=== PATIENT | male | born 1960 | race Caucasian/White ===

== ENCOUNTER 2024-05-18 20:29 | Emergency (ER) | payer BC, OTHER ==
[~2024-05-18] VITALS: Ht 172.7 cm; Wt 71.7 kg
[2024-05-18] MEDS ORDERED: TDAP [DIPH/PERTUSSIS/TET] 0.5 ML VIAL IM ONE (21:39)
[2024-05-18] MEDS: TDAP [DIPH/PERTUSSIS/TET] 0.5 ML VIAL IM ONE (21:45)
[2024-05-18] MEDS ORDERED: LIDOCAINE 0.5%-EPI 1:200,000 50 ML VIAL ONE (22:00)
[2024-05-18 22:39] VITALS: BP 121/71; TEMP 98.5; O2SAT 96
== END 2024-05-18 22:39 | disposition home or self-care (01) ==
LOC: ER 20:37
DX: S01.01XA Laceration without foreign body of scalp, initial encounter (principal); S09.90XA Unspecified injury of head, initial encounter; I10 Essential (primary) hypertension; Z79.02 Long term (current) use of antithrombotics/antiplatelets; Z79.82 Long term (current) use of aspirin; Z95.5 Presence of coronary angioplasty implant and graft; W19.XXXA Unspecified fall, initial encounter; Y93.89 Activity, other specified; Y92.89 Other specified places as the place of occurrence of the external cause; Y99.8 Other external cause status
CPT/HCPCS: 12002; 70450; 90471; 90715; 99285; A6403; J3490

== ENCOUNTER 2024-05-24 15:51 | Emergency (ER) | payer BC ==
[~2024-05-24] VITALS: Ht 162.6 cm; Wt 74.8 kg
[2024-05-24 16:12] VITALS: BP 100/51; TEMP 98.1
[2024-05-24 16:17] VITALS: O2SAT 99
== END 2024-05-24 16:18 | disposition home or self-care (01) ==
LOC: ER 15:58
DX: S01.91XD Laceration without foreign body of unspecified part of head, subsequent encounter (principal); I10 Essential (primary) hypertension; Z95.5 Presence of coronary angioplasty implant and graft; X58.XXXD Exposure to other specified factors, subsequent encounter